=== PATIENT | female | born 1990 | race American Indian/Alaskan Native ===

== ENCOUNTER 2017-09-21 09:24 | Emergency (ER) | payer MEDICAID ==
[2017-09-21 09:50] VITALS: BP 127/55
[2017-09-21 10:14] LABS: Bilirubin,Urine NEG (Negative); Blood,Urine SM (Negative); Ketones,Urine NEG (Negative); Leukocyte Esterase,Urine NEG (Negative); Nitrite,Urine NEG (Negative); Protein,Urine <15 mg/dL mg/dL (Negative); RBC,Urine < 1.0 /HPF (0.0-6.0); Urobilinogen,Urine < 2.0 mg/dL (<2.0)
[2017-09-21 10:15] LABS: WBC,Urine < 1.0 /HPF (0.0-6.0)
--- NOTE | 2017-09-21 12:14 | Emergency Department Report ---
HPI - General Chief Complaint: Back Pain/Injury Time Seen by Provider: 09/21/17 11:18 - HPI HPI: Patient here reports that she has chronic back pain and she is having in right flank pain that radiates down to her right leg and she is experiencing bilateral leg numbness. She said that pain is worse with movement and when she is attempting to lay down. Denies taken any medication for pain. She is unable to Ck initial injury or reason why she has chronic back pain. Patient says she is worried that she has a kidney infection and she took medication for urinary burning. She also denies any urinary frequency or urgency. Denies any vaginal bleeding or discharge. Last menstrual period was 08/26/2017. Pain to her right back with radiating down her leg is 7 out of 10 for severe movement better with rest then. Patient denies any recent trauma to her back. She denies any abdominal pain, denies any fever or chills or nausea and vomiting. Pain is achy and sharp and intermittent. ED Past Medical Hx - Past Medical History Previous Medical History?: Yes Additional medical history: Back pain - Surgical History Past Surgical History?: Yes Additional Surgical History: miscarriage 01/2017 DNC - Family History Family history: no significant - Social History Smoking Status: Current Some Day Smoker Substance Use Type: Alcohol, Marijuana - Medications Home Medications: Home Medications Medication Instructions Recorded Confirmed Last Taken Type Methocarbamol [Robaxin-750] 750 mg PO Q8H PRN 5 Days #15 tablet 09/21/17 Unknown Rx traMADol [Ultram] 50 mg PO Q6HR PRN 5 Days #20 tablet 09/21/17 Unknown Rx ED Review of Systems ROS: Stated complaint: BACK PAIN, LEG NUMBNESS Other details as noted in HPI Comment: All other systems reviewed and negative Constitutional: no symptoms reported Respiratory: no symptoms reported Cardiovascular: denies: chest pain, palpitations, edema, syncope Gastrointestinal: denies: abdominal pain, nausea, vomiting, diarrhea Musculoskeletal: back pain, arthralgia. denies: joint swelling, other Skin: denies: rash Neurological: numbness. denies: headache, weakness, paresthesias, confusion, abnormal gait, vertigo Physical Exam - Physical Exam Vital Signs: Vital Signs 09/21/17 09:41 Temperature 98.8 F Pulse Rate 65 Respiratory 18 Rate Blood Pressure 127/55 O2 Sat by Pulse 97 Oximetry General: This is a 27-year-old female well-nourished well-developed in no acute distress. Physical Exam: Head: Normocephalic, atraumatic, no abrasion, no bruising and no contusion. Eyes: Biateral pupils equal and reactive to light, bilateral EOM intact.. Bilateral conjunctival and sclera without injection, normal accommodation. No nystagmus Neck: Supple, No Cervical adenopathy, full range of motion and no C-spine tenderness. No swelling or tracheal deviation normal reflexes Cardiovascular: S1, S2. Regular rate and rhythm. No murmur. Capillary refill is less then 3 seconds. Lungs: Clear to auscultate bilaterally. No rhonchi, wheezes or rales. No chest wall tenderness MSK: Strength 5/5 in all extremities. No joint deformity or crepitus. Normal inspection. Full range of motion to all extremities Extremities: No clubbing, cyanosis or edema. +2 pulses. No neurovascular compromise Skin: Clean, dry and intact. No rash or lesions. Neurological: GCS at 15, Pt is alert and oriented 3 speech is clear period. 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 Normal gait. Negative Romberg and no pronator drift. Normal Reflexes. No motor or sensory deficit Back: No vertebral tenderness, no paraspinal tenderness. The bend over and touch his toes without any difficulties. Ambulates without any difficulties. Negative straight leg raises bilaterally. No saddle anesthesia Psych: Normal mood and behavior ED Course Vital Signs 09/21/17 09:41 Temperature 98.8 F Pulse Rate 65 Respiratory 18 Rate Blood Pressure 127/55 O2 Sat by Pulse 97 Oximetry - Reevaluation(s) Reevaluation #1: 09/21/17 13:04 Patient was given Decadron 10 mg IM and Toradol 60 mg IM in emergency room to control pain. ED Medical Decision Making - Lab Data Lab Results 09/21/17 Range/Units 10:04 Urine Color Red (Yellow) Urine Turbidity Clear (Clear) Urine pH 6.0 (5.0-7.0) Ur Specific [place] 1.004 (1.003-1.030) Urine Protein <15 mg/dl (Negative) mg/dL Urine Glucose (UA) Neg (Negative) mg/dL Urine Ketones Neg (Negative) mg/dL Urine Blood Sm (Negative) Urine Nitrite Neg (Negative) Ur Reducing Substances Not Reportable Urine Bilirubin Neg (Negative) Urine Ictotest Not Reportable Urine Urobilinogen < 2.0 (<2.0) mg/dL Ur Leukocyte Esterase Neg (Negative) Urine WBC (Auto) < 1.0 (0.0-6.0) /HPF Urine RBC (Auto) < 1.0 (0.0-6.0) /HPF Patient urine color red due to use of Pyridium - Medical Decision Making ED course: In here lower back pain that is radiating down her right leg which is chronic. She also reports that she gets numbness to her bilateral lower extremity from time to time. She is not following up outpatient. Patient presents here today because she said she is having back pain radiating into her right leg and she is having right flank pain and reports that she thinks she has a kidney infection. Physical findings for normal back exam with no vertebral tenderness. Neurologically she is intact. Patient is able to ambulate without any difficulties. Urinalysis reveals no infection but urine color is red and patient is taken Pyridium for urinary burning. I discussed with patient that this is a flareup of her chronic back pain because she is having radiation of pain down her extremity and she does not have any CVA tenderness with examination. Patient was given Decadron 10 mg IM and Toradol 60 mg IM in emergency room with relief of pain and I told her she will need to follow-up with Dr. Escudero who is the orthopedic doctor document control specialist for management of her chronic lower back pain with radiculopathy. She discharged home with prescription for Robaxin and Ultram. Critical care attestation.: If time is entered above; I have spent that time in minutes in the direct care of this critically ill patient, excluding procedure time. ED Disposition Clinical Impression: Acute exacerbation of chronic low back pain, Dysuria, Right flank pain, Lumbar radiculopathy, right Disposition: DC-01 TO HOME OR SELFCARE Is pt being admited?: No Does the pt Need Aspirin: No Condition: Stable Instructions: Lumbar Radiculopathy (ED), Chronic Back Pain (ED) Additional Instructions: Followup with Primary care doctor and if you do not have a primary care follow up at [facility] Follow up with orthopedist for back pain Do not drive or operate heavy machinery while taking robaxin as these meds causes drowsiness Prescriptions: Methocarbamol [Robaxin-750] 750 mg PO Q8H PRN 5 Days #15 tablet PRN Reason: Muscle Spasm traMADol [Ultram] 50 mg PO Q6HR PRN 5 Days #20 tablet PRN Reason: Pain Referrals: PRIMARY CARE, [Primary Care Provider] - 3-5 Days [facility] [Outside] - 3-5 Days ISATU ESCUDERO MD [Staff Physician] - 3-5 Days Forms: Work/School Release Form(ED)
[2017-09-21] MEDS ORDERED: DECADRON IM STA (12:17)
[2017-09-21] MEDS ORDERED: TORADOL IM ONE (12:20)
== END 2017-09-21 13:37 | disposition home or self-care (01) ==
LOC: ED 09:24
DX: M54.16 Radiculopathy, lumbar region (principal); R10.9 Unspecified abdominal pain; F17.200 Nicotine dependence, unspecified, uncomplicated; F12.10 Cannabis abuse, uncomplicated
CPT/HCPCS: 81001; 81025; 96372; 99283; J1100; J1885

== ENCOUNTER 2017-11-29 09:19 | Emergency (ER) | payer MEDICAID ==
[2017-11-29 10:10] VITALS: BP 146/88
== END 2017-11-29 13:00 | disposition left against medical advice (07) ==
LOC: ED 09:19
DX: R10.9 Unspecified abdominal pain (principal); Z53.21 Procedure and treatment not carried out due to patient leaving prior to being seen by health care provider

== ENCOUNTER 2019-05-27 08:25 | Emergency (ER) | payer MEDICAID, OTHER ==
[2019-05-27 09:06] LABS: Basophils % (Auto) 0.3 % (0.0-1.8); Eosinophils % (Auto) 0.1 % (0.0-4.3); Hematocrit 35.4 % (30.3-42.9); Hemoglobin 12.2 gm/dl (10.1-14.3); Lymphocytes # (Auto) 0.9 K/mm3 (1.2-5.4); Lymphocytes % (Auto) 19.1 % (13.4-35.0); Mean Corpuscular HGB Conc 35 % (30-34); Mean Corpuscular Volume 98 fl (79-97); Monocytes # (Auto) 0.4 K/mm3 (0.0-0.8); Monocytes % (Auto) 8.4 % (0.0-7.3); Platelet Count 235 K/mm3 (140-440); Red Blood Count 3.62 M/mm3 (3.65-5.03); Red Cell Distribution Width 12.4 % (13.2-15.2)
--- NOTE | 2019-05-27 09:13 | Emergency Department Report ---
ED Abdominal Pain HPI - General Chief Complaint: Abdominal Pain Stated Complaint: BACK/ABD PAIN Time Seen by Provider: 05/27/19 09:08 Source: patient Mode of arrival: Ambulatory Limitations: No Limitations - History of Present Illness Initial Comments: Patient is 28 years old female with no significant possibility that history. Patient presented to the ER complaining of abdominal pain, back pain, nausea and diarrhea. Patient also complaint of fever and chills. Patient denied any chest pain or shortness of breath. MD Complaint: abdominal pain -: days(s) (5) Location: diffuse Radiation: none Migration to: no migration Severity: moderate Quality: cramping, sharp Consistency: intermittent - Related Data Previous Rx's Medication Instructions Recorded Last Taken Type Methocarbamol [Robaxin-750] 750 mg PO Q8H PRN 5 Days #15 tablet 09/21/17 Unknown Rx traMADol [Ultram] 50 mg PO Q6HR PRN 5 Days #20 tablet 09/21/17 Unknown Rx Allergies Allergy/AdvReac Type Severity Reaction Status Date / Time No Known Allergies Allergy Unverified 04/22/15 18:01 ED Review of Systems ROS: Stated complaint: BACK/ABD PAIN Other details as noted in HPI Comment: All other systems reviewed and negative Constitutional: denies: chills, fever Respiratory: denies: cough, orthopnea, shortness of breath, SOB with exertion Cardiovascular: denies: chest pain Gastrointestinal: abdominal pain, nausea, diarrhea. denies: constipation, hematemesis, melena Musculoskeletal: back pain Neurological: denies: headache, weakness ED Past Medical Hx - Past Medical History Previous Medical History?: Yes Additional medical history: Back pain, abd pain , Rectal pain - Surgical History Past Surgical History?: Yes Additional Surgical History: miscarriage 01/2017 DNC, 2016 - Social History Smoking Status: Current Some Day Smoker Substance Use Type: Alcohol - Medications Home Medications: Home Medications Medication Instructions Recorded Confirmed Last Taken Type Methocarbamol [Robaxin-750] 750 mg PO Q8H PRN 5 Days #15 tablet 09/21/17 Unknown Rx traMADol [Ultram] 50 mg PO Q6HR PRN 5 Days #20 tablet 09/21/17 Unknown Rx ED Physical Exam - General Limitations: No Limitations General appearance: alert, in no apparent distress - Head Head exam: Present: atraumatic, normocephalic, normal inspection - ENT ENT exam: Present: mucous membranes moist - Respiratory Respiratory exam: Present: normal lung sounds bilaterally. Absent: respiratory distress - Cardiovascular Cardiovascular Exam: Present: regular rate, normal rhythm, normal heart sounds - GI/Abdominal GI/Abdominal exam: Present: soft, normal bowel sounds. Absent: distended, tenderness, guarding, rebound, rigid, organomegaly, mass, bruit, pulsatile mass, hernia - Extremities Exam Extremities exam: Present: normal inspection, full ROM, normal capillary refill - Back Exam Back exam: Present: normal inspection, full ROM. Absent: CVA tenderness (R), CVA tenderness (L), muscle spasm, paraspinal tenderness, vertebral tenderness - Neurological Exam Neurological exam: Present: alert, oriented X3, CN II-XII intact, normal gait - Skin Skin exam: Present: warm, intact, normal color ED Course Vital Signs 05/27/19 05/27/19 05/27/19 08:28 11:25 11:27 Temperature 98.3 F Pulse Rate 89 Respiratory 18 17 17 Rate Blood Pressure 116/67 O2 Sat by Pulse 98 Oximetry 05/27/19 11:55 Temperature Pulse Rate Respiratory 18 Rate Blood Pressure O2 Sat by Pulse Oximetry ED Medical Decision Making - Lab Data Result diagrams: 05/27/19 08:54 05/27/19 08:54 - Radiology Data Radiology results: report reviewed Referring Physician: XAVIER VALENCIA Patient Name: DARON SAAB Date of : 1990 Sex: Female Report Date: 2019-05-27 Report Status: [place] [address] Ultrasound Report Signed Patient: DARON SABA MR#: [id number] : 1990 Acct:[id number] Age/Sex: 28 / F ADM Date: 05/27/19 Loc: ED Attending Dr: Ordering Physician: XAVIER VALENCIA Date of Service: 05/27/19 Procedure(s): US OB transvaginal Accession Number(s): [id number] cc: XAVIER VALENCIA ULTRASOUND OB LESS THAN 14 WEEKS FETUS ULTRASOUND OB TRANSVAGINAL HISTORY: Abdominal pain in COMPARISON: None. TECHNIQUE: Routine transabdominal and transvaginal OB ultrasound performed. FINDINGS: Uterus: Mildly enlarged measuring 12.4 x 6.5 x 8.0 cm. Gestational Sac: Well-defined oval shape and intrauterine in location. Yolk Sac: Normal in appearance. Fetus/Embryo: [place]-rump length of 1.7 cm, corresponding to an estimated gestational age of 8 weeks 1 day. Embryonic/ anatomy is too small for evaluation. Embryonic/ cardiac activity: 171bpm Placenta: Too small for evaluation. Amniotic fluid volume: Subjectively appropriate for gestational age. Ovaries: The right ovary is normal in size and appearance with normal blood flow, measuring 3.0 x 1.8 x 2.6 cm. The left ovary is normal in size and appearance with normal blood flow, measuring 3.8 x 2.3 x 2.0 cm. Hypoechoic space-occupying mass in the left ovary with peripheral vascularity is most likely the corpus luteum. Additional findings: None. IMPRESSION Viable, single intrauterine as described. No acute abnormality is detected. Signer Name: Jamie Cook Jr, MD Signed: 05/27/2019 12:49 PM Workstation Name: [id number] Transcribed By: TTR Dictated By: JAMIE COOK JR, MD Electronically Authenticated By: JAMIE COOK JR, MD Signed Date/Time: 05/27/19 1249 DD/ 1246 TD/TT: - Medical Decision Making Patient is 28 years old female with no significant possibility that history. Patient presented to the ER complaining of abdominal pain, back pain, nausea and diarrhea. Patient also complaint of fever and chills. Patient denied any chest pain or shortness of breath. Patient is stating that she is feeling much better. Patient ultrasound showed intrauterine viable fetus at gestation age of 8 weeks. Urine show asymptomatic bacteriuria. Patient given a prescription for Macrobid. Patient given [facility] to follow-up. Patient also advised to return to the ER if symptoms are not improved. Critical care attestation.: If time is entered above; I have spent that time in minutes in the direct care of this critically ill patient, excluding procedure time. ED Disposition Clinical Impression: Abdominal pain affecting , UTI in Disposition: DC-01 TO HOME OR SELFCARE Is pt being admited?: No Condition: Stable Instructions: Abdominal Pain (ED), Abdominal Pain in (ED), Urinary Tract Infection in Women (ED) Referrals: [facility] [Provider Group] - 3-5 Days
[2019-05-27 09:27] LABS: Alanine Aminotransferase 13 units/L (7-56); Albumin 3.8 g/dL (3.9-5); BUN/Creatinine Ratio 6; Blood Urea Nitrogen 3 mg/dL (7-17); Calcium 9.2 mg/dL (8.4-10.2); Hemolysis Index 8
[2019-05-27] MEDS ORDERED: ZOFRAN IV ONE (11:10)
[2019-05-27] MEDS ORDERED: MORPHINE IV ONE ×2 (11:10→12:58)
[2019-05-27] MEDS ORDERED: NACL 0.9% 1000 ML 1,000 ML IV ONE (11:11)
[2019-05-27 11:22] LABS: Bacteria,Urine 1+ /HPF (Negative); Bilirubin,Urine NEG (Negative); Blood,Urine MOD (Negative); Color,Urine Yellow (Yellow); Mucus,Urine 3+ /HPF; Urobilinogen,Urine < 2.0 mg/dL (<2.0)
--- NOTE | 2019-05-27 12:53 | Ultrasound Report ---
ULTRASOUND OB LESS THAN 14 WEEKS FETUS ULTRASOUND OB TRANSVAGINAL HISTORY: Abdominal pain in COMPARISON: None. TECHNIQUE: Routine transabdominal and transvaginal OB ultrasound performed. FINDINGS: Uterus: Mildly enlarged measuring 12.4 x 6.5 x 8.0 cm. Gestational Sac: Well-defined oval shape and intrauterine in location. Yolk Sac: Normal in appearance. Fetus/Embryo: [place]-rump length of 1.7 cm, corresponding to an estimated gestational age of 8 weeks 1 day. Embryonic/ anatomy is too small for evaluation. Embryonic/ cardiac activity: 171bpm Placenta: Too small for evaluation. Amniotic fluid volume: Subjectively appropriate for gestational age. Ovaries: The right ovary is normal in size and appearance with normal blood flow, measuring 3.0 x 1. 8 x 2.6 cm. The left ovary is normal in size and appearance with normal blood flow, measuring 3.8 x 2.3 x 2.0 cm. Hypoechoic space-occupying mass in the left ovary with peripheral vascularity is most likely the corpus luteum. Additional findings: None. IMPRESSION Viable, single intrauterine as described. No acute abnormality is detected. Signer Name: Jamie Danielson Jr, MD Signed: 05/27/2019 12:49 PM Workstation Name: [id number]
[2019-05-27] MEDS ORDERED: MORPHINE ONE (12:58)
[2019-05-27 13:43] VITALS: BP 118/78
== END 2019-05-27 13:44 | disposition home or self-care (01) ==
LOC: ED 08:25
DX: O26.891 Other specified pregnancy related conditions, first trimester (principal); O23.41 Unspecified infection of urinary tract in pregnancy, first trimester; Z3A.08 8 weeks gestation of pregnancy; F17.200 Nicotine dependence, unspecified, uncomplicated
CPT/HCPCS: 36415; 76801; 76817; 80053; 81001; 84702; 84703; 85025; 96361; 96374; 96375; 96376; 99284; J2270; J2405; J7030